=== PATIENT | female | born 1940 | race American Indian/Alaskan Native ===

== ENCOUNTER 2019-01-07 07:41 | Day surgery (SDC) | payer MEDICARE ==
[2019-01-07] MEDS ORDERED: ASPIRIN EC 325 MG TAB PO ONE (08:18)
[2019-01-07 08:37] LABS: Eosinophils # (Auto) 0.1 K/mm3 (0.0-0.4); Eosinophils % (Auto) 2.2 % (0.0-4.3); Hematocrit 43.3 % (30.3-42.9); Hemoglobin 14.3 gm/dl (10.1-14.3); Lymphocytes # (Auto) 1.5 K/mm3 (1.2-5.4); Lymphocytes % (Auto) 32.1 % (13.4-35.0); Mean Corpuscular HGB Conc 33 % (30-34); Mean Corpuscular Volume 85 fl (79-97); Monocytes # (Auto) 0.5 K/mm3 (0.0-0.8); Monocytes % (Auto) 10.4 % (0.0-7.3); Platelet Count 150 K/mm3 (140-440); Red Blood Count 5.12 M/mm3 (3.65-5.03); Red Cell Distribution Width 14.7 % (13.2-15.2)
[2019-01-07] MEDS: SODIUM CHLORIDE 0.9% 500 ML 500 ML IV SCH ×2 (08:37→10:15)
[2019-01-07 08:49] LABS: BUN/Creatinine Ratio 24; Blood Urea Nitrogen 17 mg/dL (7-17); Calcium 9.3 mg/dL (8.4-10.2); Hemolysis Index 16; INR 1.06 (0.87-1.13)
[2019-01-07] MEDS ORDERED: MIDAZOLAM 2 MG/2 ML INJ ONE (09:58)
[2019-01-07] MEDS ORDERED: fentaNYL 100 MCG/2 ML INJ ONE (09:58)
[2019-01-07] MEDS ORDERED: HEPARIN/NS 5000 UNIT/500ML 1,000 ML IR ONE (09:58)
[2019-01-07] MEDS ORDERED: VERAPAMIL 5 MG/2 ML INJ ONE (09:58)
[2019-01-07] MEDS ORDERED: NITROGLYCERIN SYRINGE 3 ML ONE (09:59)
[2019-01-07] MEDS ORDERED: LIDOCAINE (2%) 20 MG/1 ML VIAL 20 ML MDV INFILTRATI ONE (09:59)
[2019-01-07] MEDS: HEPARIN 10,000 UNITS/10 ML VIAL ONE ×2 (10:19→10:25)
--- NOTE | 2019-01-07 10:46 | Short Stay Summary ---
Short Stay Documentation Date of service: 01/07/19 - History H&P: obtained from office - Allergies and Medications Current Medications: Allergies allopurinol Adverse Reaction (Intermediate, Verified 01/06/19 14:28) Vomiting amoxicillin [Amoxicillin] Adverse Reaction (Mild, Verified 01/06/19 14:28) SEVERE SORE THROAT clarithromycin Adverse Reaction (Verified 01/07/19 09:07) Unknown Home Medications Medication Instructions Recorded Confirmed Last Taken Type amLODIPine [Norvasc] 5 mg PO DAILY 03/20/17 01/06/19 01/06/19 History Atenolol [Tenormin] 50 mg PO DAILY 01/06/19 01/06/19 01/06/19 History Cholecalciferol (Vitamin D3) 2,000 unit PO QDAY 01/06/19 01/06/19 01/06/19 History [Vitamin D3 2,000 UNIT CAP] Famotidine [Pepcid] 40 mg PO DAILY 01/06/19 01/06/19 01/06/19 History Nitroglycerin [Nitrostat] 0.4 mg SL Q5M PRN 01/06/19 01/06/19 Unknown History oxyCODONE /ACETAMINOPHEN [Percocet 1 tab PO Q6H PRN 01/06/19 01/06/19 01/06/19 History 5/325] Active Medications Sodium Chloride (Nacl 0.9% 500 Ml) 500 mls @ 50 mls/hr IV DIRECT GEMMA Stop: 01/07/19 18:59 Last Admin: 01/07/19 08:37 Dose: 50 mls/hr Documented by: - Brief post op/procedure progress note Date of procedure: 01/07/19 Pre-op diagnosis: cp Post-op diagnosis: same Procedure: see report Anesthesia: local Estimated blood loss: none Pathology: none - Disposition Condition at discharge: Good Disposition: DC-01 TO HOME OR SELFCARE - Discharge Diagnoses (1) Abnormal cardiovascular stress test Status: Resolved (2) Acute chest pain Status: Chronic (3) HTN (hypertension) Status: Chronic Qualifiers: Hypertension type: essential hypertension Short Stay Discharge Plan Activity: advance as tolerated Diet: low fat, low cholesterol, low salt Wound: open to air Follow up with: SPENSER PARKINSON MD [Primary Care Provider] - 7 Days
--- NOTE | 2019-01-07 11:23 | Cardiac Catherization Report ---
Left heart cath is being done by Dr. Rojas on 01/07/2019. PRIMARY CARE PHYSICIAN: Ashleigh Velazquez MD PRIMARY BELT BUCKLE MAKER: Dr. Wen. CLINICAL INFORMATION: A 78-year-old patient with recurrent chest pain, hypertension, hyperlipidemia, had a stress test. She had developed left bundle-branch block during Lexiscan and had mild anterior ischemia. She is here for a left heart catheterization. Procedure was done with moderate sedation. Total sedation time was 14 minutes, started at 10:19 a.m. and finished at 10:33 a.m. Procedure was done via the right radial artery, sterile technique, local anesthesia, 6-Bulgarian radial sheath inserted. PROCEDURE FINDINGS: Left system engaged with JL3.5 catheter, left main is large and long and patent, but you see calcification of the left coronary system on fluoroscopy, so the patient has coronary arterial disease, but left main is large and patent. LAD is a large caliber vessel, patent. Diagonal 1 and diagonal 2 medium caliber vessel, patent. Circumflex is a large caliber vessel, patent. OM1 and OM2 medium caliber is patent. You do see the RCA coming off the left coronary cusp and medium to large caliber vessel is patent. PDA, PLV are medium caliber vessel, patent, engaged RCA with a JR4 catheter, it comes from the left coronary cusp. Large caliber vessel was patent from proximally and distally. PDA and PLV are patent, normal LV function, EF 55-60%, LVEDP 22 mmHg, LV 136 mmHg. Aortic is 136/73 mmHg. No gradient across the aortic valve on pullback. A 5-Bulgarian catheters all taken over a guidewire. A 6-Bulgarian radial sheath was discontinued. Radial band applied. No hematoma, no bleeding. SUMMARY: Patent coronary calcification on fluoroscopy, known coronary artery disease, but patent left main, LAD, diagonal 1 and diagonal 2. Circumflex patent. OM1, OM2 patent. RCA comes from the left coronary cusp, but it is a large dominant vessel, patent. PDA and PLV are patent, normal LV function. RECOMMENDATION: Continue medical management. JOB# [id number] VRM/NTS
[2019-01-07 13:39] VITALS: BP 137/53
== END 2019-01-07 14:15 | disposition home or self-care (01) ==
LOC: CATHLABREC 07:41
PROVIDERS: ATTEND Internal Medicine
DX: R07.89 Other chest pain (principal); R94.39 Abnormal result of other cardiovascular function study; I10 Essential (primary) hypertension; E78.5 Hyperlipidemia, unspecified; K21.9 Gastro-esophageal reflux disease without esophagitis; F32.9 Major depressive disorder, single episode, unspecified; F41.9 Anxiety disorder, unspecified; M19.90 Unspecified osteoarthritis, unspecified site; I25.10 Atherosclerotic heart disease of native coronary artery without angina pectoris; Z79.899 Other long term (current) drug therapy; Z88.6 Allergy status to analgesic agent; Z98.49 Cataract extraction status, unspecified eye; Z90.710 Acquired absence of both cervix and uterus; Z83.3 Family history of diabetes mellitus; Z98.890 Other specified postprocedural states; Z86.2 Personal history of diseases of the blood and blood-forming organs and certain disorders involving the immune mechanism; Z88.8 Allergy status to other drugs, medicaments and biological substances; Z82.49 Family history of ischemic heart disease and other diseases of the circulatory system
CPT/HCPCS: 36415; 80048; 85025; 85610; 85730; 93005; 93010; 93458; 99156; C1894; J1644; J2250; J3010; J7040; Q9967

== ENCOUNTER 2019-04-08 11:09 | Emergency (ER) | payer MEDICARE ==
--- NOTE | 2019-04-08 11:46 | Emergency Department Report ---
Blank Doc - Documentation Documentation: 78-year-old female that presents with generalized body aches and weakness. This initial assessment/diagnostic orders/clinical plan/treatment(s) is/are subject to change based on patient's health status, clinical progression and re- assessment by fellow clinical providers in the ED. Further treatment and workup at subsequent clinical providers discretion. Patient/guardians urged not to elope from the ED as their condition may be serious if not clinically assessed and managed. Initial orders include: 1- Patient sent to MAIN ED for further evaluation and treatment 2- labs 3- EKG
[2019-04-08 11:47] VITALS: BP 144/70
[2019-04-08 14:11] LABS: Basophils % (Auto) 0.9 % (0.0-1.8); Eosinophils # (Auto) 0.1 K/mm3 (0.0-0.4); Eosinophils % (Auto) 1.6 % (0.0-4.3); Hematocrit 42.5 % (30.3-42.9); Lymphocytes # (Auto) 1.6 K/mm3 (1.2-5.4); Lymphocytes % (Auto) 35.2 % (13.4-35.0); Mean Corpuscular HGB Conc 33 % (30-34); Mean Corpuscular Volume 84 fl (79-97); Monocytes # (Auto) 0.5 K/mm3 (0.0-0.8); Monocytes % (Auto) 10.8 % (0.0-7.3); Platelet Count 155 K/mm3 (140-440); Red Blood Count 5.06 M/mm3 (3.65-5.03); Red Cell Distribution Width 15.5 % (13.2-15.2)
[2019-04-08 14:31] LABS: Alanine Aminotransferase 14 units/L (7-56); Albumin 3.6 g/dL (3.9-5); BUN/Creatinine Ratio 18; Blood Urea Nitrogen 14 mg/dL (7-17); Calcium 9.4 mg/dL (8.4-10.2); Hemolysis Index 10
[2019-04-08] MEDS ORDERED: MORPHINE 4 MG/1 ML INJ IV ONE (17:19)
[2019-04-08] MEDS ORDERED: FAMOTIDINE 20 MG/2 ML INJ IV ONE (17:20)
--- NOTE | 2019-04-08 17:45 | XRay Report ---
CHEST 1 VIEW INDICATION: CP. COMPARISON: none FINDINGS: SUPPORT DEVICES: None. HEART / MEDIASTINUM: No significant abnormality. LUNGS / PLEURA: No significant pulmonary or pleural abnormality. No pneumothorax. ADDITIONAL FINDINGS: IMPRESSION: 1. No acute cardiopulmonary disease Signer Name: Ghulam Jensen MD Signed: 04/08/2019 5:41 PM Workstation Name: [id number]
--- NOTE | 2019-04-08 17:56 | Emergency Department Report ---
HPI - General Chief Complaint: Pain General Time Seen by Provider: 04/08/19 11:45 - HPI HPI: 78-year-old -[place] female presents to the emergency department with a complaint of generalized pains that has been going on for the past 2 weeks. She has been taking some Tylenol for her symptoms without any relief. The patient's main complaint of discomfort is in the epigastric abdominal region. She denies any fever, nausea, vomiting, constipation, diarrhea, dysuria. She denies that food or drink affects the discomfort. Patient says that she is very uncomfortable at night when laying down and it has caused her to lose sleep. She has a past medical history of osteoarthritis, GERD, hypertension, gout. Her primary care physician is Dr. Ashleigh Parkinson. No recent travel or sick contacts at home. ED Past Medical Hx - Past Medical History Previous Medical History?: Yes Hx Hypertension: Yes Hx Heart Attack/AMI: No Hx GERD: Yes Hx Arthritis: Yes (both knees) Hx Kidney Stones: No Hx HIV: No Additional medical history: H pylori. gout - Surgical History Past Surgical History?: Yes Additional Surgical History: retina surgery 90 to right 2009 to left - Social History Smoking Status: Never Smoker Substance Use Type: None - Medications Home Medications: Home Medications Medication Instructions Recorded Confirmed Last Taken Type amLODIPine 5 mg PO DAILY 03/20/17 01/06/19 01/06/19 History Cholecalciferol (Vitamin D3) 2,000 unit PO QDAY 01/06/19 01/06/19 01/06/19 History [Vitamin D3 2,000 UNIT CAP] Nitroglycerin [Nitrostat] 0.4 mg SL Q5M PRN 01/06/19 01/06/19 Unknown History atenoloL [Tenormin] 50 mg PO DAILY 01/06/19 01/06/19 01/06/19 History oxyCODONE /ACETAMINOPHEN [Percocet 1 tab PO Q6H PRN 01/06/19 01/06/19 01/06/19 History 5/325 mg] Acetaminophen [Acetaminophen TAB] 1,000 mg PO Q6HR PRN #30 tablet 02/16/19 Unknown Rx Diclofenac 1% [Diclofenac 1% 1 applicatio TP QID PRN #1 tube 02/16/19 Unknown Rx topical gel] predniSONE [Deltasone] 40 mg PO QDAY 5 Days #10 tab 02/16/19 Unknown Rx Famotidine [Pepcid] 20 mg PO BID #20 tablet 04/08/19 Unknown Rx HYDROcodone/APAP 5-325 [Daphne 1 each PO Q6HR PRN #10 tablet 04/08/19 Unknown Rx 5/325] ED Review of Systems ROS: Stated complaint: BODY PAIN Other details as noted in HPI Comment: All other systems reviewed and negative Constitutional: denies: chills, fever Eyes: denies: eye pain, vision change ENT: denies: ear pain, throat pain Respiratory: denies: cough, shortness of breath Cardiovascular: denies: chest pain, palpitations Gastrointestinal: abdominal pain. denies: vomiting Genitourinary: denies: dysuria, discharge Musculoskeletal: back pain, arthralgia, myalgia. denies: joint swelling Skin: denies: rash, lesions Neurological: denies: headache, weakness, numbness Physical Exam - Physical Exam Vital Signs: Vital Signs 04/08/19 04/08/19 11:45 17:45 Temperature 98.4 F Pulse Rate 61 Respiratory 18 18 Rate Blood Pressure 144/70 O2 Sat by Pulse 98 Oximetry Physical Exam: GENERAL: The patient is well-developed well-nourished. HENT: Normocephalic. Atraumatic. Patient has moist mucous membranes. EYES: Extraocular motions are intact. NECK: Supple. Trachea is midline. CHEST/LUNGS: Clear to auscultation. There is no respiratory distress noted. HEART/CARDIOVASCULAR: Regular. There is no tachycardia. There is no murmur. ABDOMEN: Abdomen is soft. Mild epigastric tenderness to palpation. No guarding. Patient has normal bowel sounds. There is no abdominal distention. SKIN: Skin is warm and dry. NEURO: The patient is awake, alert, and oriented. The patient is cooperative. The patient has no focal neurologic deficits. Normal speech. MUSCULOSKELETAL: There is no obvious deformity. There is no limitation range of motion. ED Course Vital Signs 04/08/19 04/08/19 11:45 17:45 Temperature 98.4 F Pulse Rate 61 Respiratory 18 18 Rate Blood Pressure 144/70 O2 Sat by Pulse 98 Oximetry ED Medical Decision Making - Lab Data Result diagrams: 04/08/19 13:29 04/08/19 13:29 - EKG Data -: EKG Interpreted by Me EKG shows normal: sinus rhythm, axis, intervals, QRS complexes (LVH), ST-T waves Rate: bradycardia (50 bpm) - EKG Data When compared to previous EKG there are: no significant change, previous EKG unavailable Interpretation: unchanged when compared t (01/07/19) - Radiology Data Radiology results: report reviewed, image reviewed interpreted by me: Chest x-ray does not show any acute process. There are no pleural effusions, obvious pneumonia and there is no pneumothorax. CT ABDOMEN AND PELVIS WITH IV CONTRAST INDICATION: Midline abdominal pain. COM PARISON: CT 10/27/2015. TECHNIQUE: All CT scans at this facility use dose modulation, automated exposure control, iterative reconstruction or weight based dosing, when appropriate, to reduce radiation dose to as low as reasonably achievable. FINDINGS: Lung Bases: No significant abnormality. Skeletal System: There is compression deformity along the superior endplate of L4 that appear subacute/chronic but is new since the prior exam. ABDOMEN: Liver: No significant abnormality. Gallbladder: No significant abnormality. Bile Ducts: No significant abnormality. Pancreas: No significant abnormality. Spleen: No significant abnormality. Adrenals: No significant abnormality. Right Kidney: No significant abnormality. Left Kidney: Large lower pole cyst is again noted. Upper GI tract: No significant abnormality. Lymph Nodes: No significant adenopathy. Aorta: No significant abnormality. Additional Findings: No significant abnormality. PELVIS: Colon: No acute abnormality. Diverticulosis is noted. Urinary Bladder and Distal Ureters: No significant abnormality. Appendix: Not visualized. Lymph Nodes: No significant adenopathy. Additional Findings: None. IMPRESSION: 1. No acute process in the abdomen or pelvis. 2. Incidental findings, as above. - Medical Decision Making This patient presents to the emergency department with a two-week history of generalized body pains but the patient is very concerned about some epigastric pain over this time as well that appears to keep her from getting sleep at night. The patient has been evaluated for this multiple times in the past including with 2 different gastroenterology groups. The patient's labs were unremarkable including CBC, metabolic panel, urinalysis and negative troponins x2. A chest x-ray was done that does not show any pneumonia, pleural effusions, focal consolidation, pneumothorax, or any other acute process. A CT scan of the abdomen and pelvis with IV contrast was completed that does not show any acute process or etiology of her discomfort. The patient was given a dose of pain medication and Pepcid and upon reevaluation she is feeling improved. She is mostly anxious that the pain will return. Vital signs stable throughout her ED course. The patient appears safe for discharge home at this time. She was seen ambulatory in the emergency department and both appears and feels stable. The patient has good outpatient follow-up with primary care and gastroenterology. She was given a referral for an orthopedist for her joint pains. The joints of cells do not appear swollen, erythematous and she has full range of motion. The patient will return to the emergency department with any worsening of her symptoms or any acute distress. - Differential Diagnosis Osteoarthritis, pancreatitis, cholelithiasis, NH, gastritis Critical Care Time: No Critical care attestation.: If time is entered above; I have spent that time in minutes in the direct care of this critically ill patient, excluding procedure time. ED Disposition Clinical Impression: Epigastric abdominal pain, Arthritis Joint pain Qualifiers: Joint pain location: unspecified Qualified Code(s): M25.50 - Pain in unspecified joint Disposition: DC- TO HOME OR SELFCARE Is pt being admited?: No Condition: Stable Instructions: Osteoarthritis (ED), Abdominal Pain (ED) Additional Instructions: Please follow-up with your primary care physician in the next few days. I have given you a referral for a local orthopedist, Dr. Delgado, to follow-up regarding your joint pains. I also recommend that you follow-up with 1 of the annual greenhouse manager that you have previously seen. Return to the emergency department with any worsening of your symptoms or any acute distress. You have been prescribed a medication that is sedating and therefore should not be taken prior to driving, working, and responsible for children and in no way should be mixed with alcohol of any quantity. Prescriptions: HYDROcodone/APAP 5-325 [Daphne 5/325] 1 each PO Q6HR PRN #10 tablet PRN Reason: Pain Famotidine [Pepcid] 20 mg PO BID #20 tablet Referrals: ASHLEIGH PARKINSON MD [Staff Physician] - 2-3 Days INGRID DELGADO MD [Staff Physician] - 2-3 Days Time of Disposition: 19:12
[2019-04-08 18:48] LABS: Bilirubin,Urine NEG (Negative); Blood,Urine SM (Negative); Color,Urine Yellow (Yellow); Protein,Urine <15 mg/dL mg/dL (Negative); Urobilinogen,Urine < 2.0 mg/dL (<2.0)
--- NOTE | 2019-04-08 18:50 | Cat Scan Report ---
CT ABDOMEN AND PELVIS WITH IV CONTRAST INDICATION: Midline abdominal pain. COMPARISON: CT 10/27/2015. TECHNIQUE: All CT scans at this facility use dose modulation, automated exposure control, iterative reconstructi on or weight based dosing, when appropriate, to reduce radiation dose to as low as reasonably achieva ble. FINDINGS: Lung Bases: No significant abnormality. Skeletal System: There is compression deformity along the superior endplate of L4 that appear subacut e/chronic but is new since the prior exam. ABDOMEN: Liver: No significant abnormality. Gallbladder: No significant abnormality. Bile Ducts: No significant abnormality. Pancreas: No significant abnormality. Spleen: No significant abnormality. Adrenals: No significant abnormality. Right Kidney: No significant abnormality. Left Kidney: Large lower pole cyst is again noted. Upper GI tract: No significant abnormality. Lymph Nodes: No significant adenopathy. Aorta: No significant abnormality. Additional Findings: No significant abnormality. PELVIS: Colon: No acute abnormality. Diverticulosis is noted. Urinary Bladder and Distal Ureters: No significant abnormality. Appendix: Not visualized. Lymph Nodes: No significant adenopathy. Additional Findings: None. IMPRESSION: 1. No acute process in the abdomen or pelvis. 2. Incidental findings, as above. Signer Name: Ronni Hernandes MD Signed: 04/08/2019 6:46 PM Workstation Name: [id number]
== END 2019-04-08 19:50 | disposition home or self-care (01) ==
LOC: ED 11:09
DX: R10.13 Epigastric pain (principal); M13.88 Other specified arthritis, other site; M25.50 Pain in unspecified joint; I10 Essential (primary) hypertension; K21.9 Gastro-esophageal reflux disease without esophagitis; M13.862 Other specified arthritis, left knee; M13.861 Other specified arthritis, right knee; Z79.899 Other long term (current) drug therapy; Z88.1 Allergy status to other antibiotic agents; Z88.8 Allergy status to other drugs, medicaments and biological substances
CPT/HCPCS: 36415; 71045; 74177; 80053; 81001; 82550; 84484; 85025; 87086; 93005; 93010; 96374; 96375; 99285; J2270; Q9967

== ENCOUNTER 2020-12-06 12:43 | Emergency (ER) | payer MEDICARE ==
[2020-12-06 13:29] LABS: Bilirubin,Urine NEG (Negative); Blood,Urine NEG (Negative); Color,Urine Yellow (Yellow); Protein,Urine <15 mg/dL mg/dL (Negative); Urobilinogen,Urine < 2.0 mg/dL (<2.0)
--- NOTE | 2020-12-06 13:45 | Emergency Department Report ---
- General Chief complaint: Weakness Stated complaint: BODY PAIN Time Seen by Provider: 12/06/20 12:55 Source: patient Mode of arrival: Wheelchair Limitations: No Limitations - History of Present Illness Initial comments: Patient presented with multiple issues. She complains of pain all over. This been going on for over a year. She has been told that this was arthritis by her regular physician. She has been using Tylenol and tramadol. She still has pain. There is no new pain. She has no new fevers. There is no new injury. There is no new joint swelling. This is an all the joints. She states that she feels it "all over." She also has been having intermittent problems with movement in her stomach. This is been going on for 6 months. There is no pain associated with this. She has no nausea or vomiting. There is no diarrhea. She states that she just feels things moving around. Clearly, she knows that she is not . Patient does report a recent change in urinary habits with urinary frequency and urgency. Family states that she is urinating a lot. Again, there has been no fever. There was no hematuria associated with this. Severity scale (0 -10): 8 - Related Data Home Medications Medication Instructions Recorded Confirmed Last Taken amLODIPine 5 mg PO DAILY 03/20/17 01/06/19 01/06/19 Cholecalciferol (Vitamin D3) 2,000 unit PO QDAY 01/06/19 01/06/19 01/06/19 [Vitamin D3 2,000 UNIT CAP] Nitroglycerin [Nitrostat] 0.4 mg SL Q5M PRN 01/06/19 01/06/19 Unknown atenoloL [Tenormin] 50 mg PO DAILY 01/06/19 01/06/19 01/06/19 oxyCODONE /ACETAMINOPHEN [Percocet 1 tab PO Q6H PRN 01/06/19 01/06/19 01/06/19 5/325 mg] Previous Rx's Medication Instructions Recorded Last Taken Type Acetaminophen [Acetaminophen TAB] 1,000 mg PO Q6HR PRN #30 tablet 02/16/19 Unknown Rx Diclofenac 1% [Diclofenac 1% 1 applicatio TP QID PRN #1 tube 02/16/19 Unknown Rx topical gel] predniSONE [Deltasone] 40 mg PO QDAY 5 Days #10 tab 02/16/19 Unknown Rx Famotidine [Pepcid] 20 mg PO BID #20 tablet 04/08/19 Unknown Rx HYDROcodone/APAP 5-325 [Reading 1 each PO Q6HR PRN #10 tablet 04/08/19 Unknown Rx 5/325] Allergies Allergy/AdvReac Type Severity Reaction Status Date / Time allopurinol AdvReac Intermediate Vomiting Verified 12/06/20 12:46 amoxicillin [Amoxicillin] AdvReac Mild SEVERE Verified 12/06/20 12:46 SORE THROAT clarithromycin AdvReac Unknown Verified 12/06/20 12:46 ED Review of Systems ROS: Stated complaint: BODY PAIN Other details as noted in HPI Comment: All other systems reviewed and negative Constitutional: denies: fever Eyes: denies: vision change ENT: denies: throat pain Respiratory: denies: cough Cardiovascular: as per HPI, other ("Pain all over) Endocrine: increased urine. denies: unexplained weight loss Gastrointestinal: denies: vomiting, diarrhea Genitourinary: denies: hematuria Musculoskeletal: as per HPI Skin: denies: rash Neurological: denies: paresthesias Hematological/Lymphatic: denies: easy bruising ED Past Medical Hx - Past Medical History Hx Hypertension: Yes Hx Heart Attack/AMI: No Hx GERD: Yes Hx Arthritis: Yes (both knees) Hx Kidney Stones: No Hx HIV: No Additional medical history: H pylori. gout - Surgical History Additional Surgical History: retina surgery 90 to right 2010 to left - Family History Family history: hypertension - Social History Smoking Status: Never Smoker Substance Use Type: None - Medications Home Medications: Home Medications Medication Instructions Recorded Confirmed Last Taken Type amLODIPine 5 mg PO DAILY 03/20/17 01/06/19 01/06/19 History Cholecalciferol (Vitamin D3) 2,000 unit PO QDAY 01/06/19 01/06/19 01/06/19 History [Vitamin D3 2,000 UNIT CAP] Nitroglycerin [Nitrostat] 0.4 mg SL Q5M PRN 01/06/19 01/06/19 Unknown History atenoloL [Tenormin] 50 mg PO DAILY 01/06/19 01/06/19 01/06/19 History oxyCODONE /ACETAMINOPHEN [Percocet 1 tab PO Q6H PRN 11/19/19 11/19/19 11/19/19 History 5/325 mg] Acetaminophen [Acetaminophen TAB] 1,000 mg PO Q6HR PRN #30 tablet 02/16/19 Unknown Rx Diclofenac 1% [Diclofenac 1% 1 applicatio TP QID PRN #1 tube 02/16/19 Unknown Rx topical gel] predniSONE [Deltasone] 40 mg PO QDAY 5 Days #10 tab 02/16/19 Unknown Rx Famotidine [Pepcid] 20 mg PO BID #20 tablet 04/08/19 Unknown Rx HYDROcodone/APAP 5-325 [[place] 1 each PO Q6HR PRN #10 tablet 04/08/19 Unknown Rx 5/325] ED Physical Exam - General Limitations: No Limitations, Other (Frail. Pulse ox is noted and normal) General appearance: alert, in no apparent distress - Head Head exam: Present: atraumatic, normocephalic - Eye Eye exam: Present: normal appearance, PERRL, EOMI. Absent: scleral icterus - ENT ENT exam: Present: mucous membranes dry - Neck Neck exam: Present: normal inspection. Absent: meningismus - Respiratory Respiratory exam: Present: normal lung sounds bilaterally. Absent: respiratory distress - Cardiovascular Cardiovascular Exam: Present: regular rate, normal rhythm - GI/Abdominal GI/Abdominal exam: Present: soft. Absent: tenderness - Extremities Exam Extremities exam: Present: normal capillary refill. Absent: pedal edema - Back Exam Back exam: Absent: CVA tenderness (R) - Neurological Exam Neurological exam: Present: alert, oriented X3, CN II-XII intact. Absent: motor sensory deficit - Psychiatric Psychiatric exam: Present: normal affect, normal mood - Skin Skin exam: Present: warm, dry ED Course Vital Signs 12/06/20 12/06/20 12/06/20 12:49 13:38 13:40 Temperature 98.1 F 97.9 F Pulse Rate 53 L 50 L Respiratory 20 18 18 Rate Blood Pressure 141/61 Blood Pressure 141/70 [Left] O2 Sat by Pulse 94 99 99 Oximetry - Reevaluation(s) Reevaluation #1: 12/06/20 13:45 Labs are ordered. Old records reviewed. Reevaluation #2: 12/06/20 13:46 UA was noted. Patient was discharged. ED Medical Decision Making - Medical Decision Making Patient presented with body pain for over a year. There is no new symptomatology that would require emergent intervention. Patient has no evidence of a septic arthritis. Joints do not appear to be warm or erythematous. Patient did report urinary frequency and urgency but does not have evidence of urinary tract infection. There is no hematuria to suggest ureteral stone. Patient does not have glucose in the urine suggestive of new onset diabetes. The movement in the stomach is of uncertain significance. She has no abdominal tenderness. There is no pulsatile mass. There is no distention or tympany. Again, I do not believe CT is warranted. Critical Care Time: No Critical care attestation.: If time is entered above; I have spent that time in minutes in the direct care of this critically ill patient, excluding procedure time. ED Disposition Clinical Impression: Urinary frequency, Chronic pain Disposition: HOME / SELF CARE / HOMELESS Is pt being admited?: No Condition: Stable Instructions: Urinary Frequency, Adult, What You Need to Know About Chronic Back Pain Additional Instructions: Continue to take Tylenol and tramadol as needed. Drink plenty water. Return for problems. Follow-up with your primary care doctor for recheck. If you do not have a primary physician, follow-up with the referral physician. Referrals: ALANIS RAZO MD [Referring] - 3-5 Days JESUS MIGUEL MD [Staff Physician] - 3-5 Days
[2020-12-06] MEDS ORDERED: ACETAMINOPHEN 500 MG TAB PO ONE (14:08)
[2020-12-06 14:20] VITALS: BP 134/58
== END 2020-12-06 14:44 | disposition home or self-care (01) ==
LOC: ED 12:43
DX: R35.0 Frequency of micturition (principal); G89.29 Other chronic pain; I10 Essential (primary) hypertension; K21.9 Gastro-esophageal reflux disease without esophagitis; M17.0 Bilateral primary osteoarthritis of knee; M10.9 Gout, unspecified; Z98.890 Other specified postprocedural states; Z88.0 Allergy status to penicillin; Z88.1 Allergy status to other antibiotic agents; Z88.8 Allergy status to other drugs, medicaments and biological substances
CPT/HCPCS: 81001; 99283